=== PATIENT | male | born 1960 | race Caucasian/White ===

== ENCOUNTER 2019-07-15 08:13 | Outpatient (CLI) | payer BC ==
--- NOTE | 2019-07-15 09:32 | MRI ---
EXAM: MRI lumbar spine without contrast HISTORY: Spondylosis with radiculopathy. Left hip pain and low back pain for 3 months COMPARISON: None TECHNIQUE: Multiple planar multisequence MR images were obtained of the lumbar spine without contrast . FINDINGS: The vertebral bodies and intervertebral discs demonstrate normal height and alignment without fractur e or subluxation. Anterior osteophytes are seen in the upper lumbar spine. The prevertebral and paraspinal soft tissues are unremarkable. No marrow signal abnormality is present. Mild generalized disc desiccation is seen. The conus medullaris terminates normally at T12/L1. T12/L1: No significant posterior bulge or protrusion. No posterior facet arthrosis. No central tova l stenosis. No neural foraminal stenosis L1/2: No significant posterior bulge or protrusion. No posterior facet arthrosis. No central canal stenosis. No neural foraminal stenosis L2/3: No significant posterior bulge or protrusion. No posterior facet arthrosis. No central canal stenosis. No neural foraminal stenosis L3/4: A minimal generalized concentric disc bulge is seen. Moderate bilateral posterior facet arthro sis. No central canal stenosis. Mild bilateral neural foraminal stenosis L4/5: A minimal generalized concentric disc bulge is seen. Mild bilateral posterior facet arthrosis. No central canal stenosis. Mild bilateral neural foraminal stenosis L5/S1: A small generalized concentric disc bulge is seen. Moderate bilateral posterior facet arthros is. No central canal stenosis. Mild right and moderate left neural foraminal stenosis IMPRESSION: Degenerative changes of the lumbar spine as above
== END 2019-07-15 08:14 | disposition home or self-care (01) ==
LOC: BICMRI 08:13
PROVIDERS: ATTEND Family Medicine
DX: M47.26 Other spondylosis with radiculopathy, lumbar region (principal); M25.552 Pain in left hip; G89.29 Other chronic pain
CPT/HCPCS: 72148